=== PATIENT | female | born 1955 | race Caucasian/White ===

== ENCOUNTER → 2016-12-09 | Outpatient (CLI) | payer OTHER ==
[~2016-12-09] MED LIST: ALBINS INH; ALBU1AER9 INH; ALEN70TA4 PO; AMLO-110 PO; ASTNS; BCOMPLEX PO; CHOL1CAP67 PO; CLC100 PO; CZR50 PO; IMIP10TA2 PO; IPRLVL NEB; LABE1TAB28 PO; MRLP17 PO; PANT40TA PO; POTA10CA28 PO; PRMVC EXT; QVRINH40 INH; SNG10 PO
== END | disposition home or self-care (01) ==
LOC: C.PAPS 11:07
PROVIDERS: ATTEND Obstetrics & Gynecology
DX: Z01.419 Encounter for gynecological examination (general) (routine) without abnormal findings (principal)

== ENCOUNTER → 2016-12-18 | Outpatient (CLI) | payer OTHER ==
--- NOTE | 2016-12-18 12:29 | DIAGNOSTIC IMAGING REPORT ---
CHEST 2 VIEWS ROUTINE CLINICAL HISTORY: EXERTIONAL CHEST PAIN, SHORTNESS OF BREATH dyspnea COMPARISON STUDY: 07/20/2014 FINDINGS: The bones soft tissues and hemidiaphragms are normal. The cardiomediastinal silhouette is normal. The lungs are clear. The pulmonary vasculature is normal. IMPRESSION: Negative chest. Electronically signed by: Jadon Castelan M.D. 12/18/2016 12:27 PM Dictated Date/Time: 12/18/2016 12:27 PM
== END | disposition home or self-care (01) ==
LOC: C.RADBC 11:45
PROVIDERS: ATTEND Family Medicine
DX: R06.02 Shortness of breath (principal); R07.9 Chest pain, unspecified; I10 Essential (primary) hypertension; M85.80 Other specified disorders of bone density and structure, unspecified site; Z11.59 Encounter for screening for other viral diseases; Z13.0 Encounter for screening for diseases of the blood and blood-forming organs and certain disorders involving the immune mechanism

== ENCOUNTER → 2016-12-30 | Outpatient (CLI) | payer OTHER ==
--- NOTE | 2016-12-31 15:07 | MAMMOGRAPHY REPORT ---
BILATERAL DIGITAL SCREENING MAMMOGRAM TOMOSYNTHESIS WITH CAD: 12/30/2016 CLINICAL HISTORY: Routine screening. Patient has no complaints. TECHNIQUE: Breast tomosynthesis in addition to standard 2D mammography was performed. Current study was also evaluated with a Computer Aided Detection (CAD) system. COMPARISON: Comparison is made to exams dated: 07/11/2014 mammogram, 05/09/2013 mammogram, 05/05/2012 m ammogram, 04/30/2011 mammogram, 04/28/2010 mammogram, and 01/25/2009 mammogram - [facility] Radha Noel. BREAST COMPOSITION: There are scattered areas of fibroglandular density in both breasts. FINDINGS: There is a possible 6 mm mass in the upper outer anterior left breast, for which addition al targeted ultrasound and possible additional mammographic views are recommended. No other suspicious mass, architectural distortion or cluster of microcalcifications is seen bilater ally. IMPRESSION: ACR BI-RADS CATEGORY 0: INCOMPLETE EVALUATION: NEED ADDITIONAL IMAGING EVALUATION The possible 6 mm mass in the upper outer anterior left breast needs additional evaluation. The patient will be called to schedule an appointment. Approximately 10% of breast cancers are not detected with mammography. A negative mammographic repor t should not delay biopsy if a clinically suggestive mass is present. Lissy Rodriguez M.D. ay/:12/30/2016 21:40:13 Executive Administrative Asst: Almaz EVANGELISTA(Ct)(M), [facility] letter sent: Addl Imaging 0 BI-RADS Code: ACR BI-RADS Category 0: Incomplete Evaluation: Need Additional Imaging Evaluation
== END | disposition home or self-care (01) ==
LOC: C.MAMM 14:19
PROVIDERS: ATTEND Family Medicine
DX: Z12.31 Encounter for screening mammogram for malignant neoplasm of breast (principal)

== ENCOUNTER → 2017-01-08 | Outpatient (CLI) | payer OTHER ==
--- NOTE | 2017-01-08 15:41 | MAMMOGRAPHY REPORT ---
ULTRASOUND OF LEFT BREAST: 01/08/2017 CLINICAL HISTORY: Callback from screening mammogram for left breast mass. COMPARISON: Comparison is made to exams dated: 12/30/2016 mammogram - [facility], 07/21/2015 mammogram, 07/11/2014 mammogram, 05/09/2013 mammogram, 05/05/2012 mammogram, and 04/30/2011 ma mmogram - [facility]. TECHNIQUE: Real-time targeted ultrasound of the left breast was performed. FINDINGS: Real-time, high resolution targeted ultrasound was performed of the left 2 to 3:00 breast in the region of the 6 mm partially circumscribed and partially obscured mammographic mass seen on the recent tomosynthesis screening mammogram. In the left breast at 3:00 periareolar region, there is an oval circumscribed anechoic mass with a thin internal septation, measuring 6 x 3 x 4 mm. No i nternal vascularity is evident. This corresponds with the mammographic mass and is consistent with a benign cyst. IMPRESSION: ACR BI-RADS CATEGORY 2: BENIGN Benign 6 mm cyst in the left breast at 3:00 on ultrasound, which corresponds with the mammographic m ass. There is no sonographic evidence of malignancy. A 1 year screening mammogram is recommended. The patient was verbally notified of the results. Alycia Pérez M.D. ah/:01/08/2017 08:44:35 Reject Opener: Nena CORMIER)([place]ár[place]), [facility] letter sent: Normal 1/2 BI-RADS Code: ACR BI-RADS Category 2: Benign
== END | disposition home or self-care (01) ==
LOC: C.MAMM 08:26
PROVIDERS: ATTEND Family Medicine
DX: N63 Unspecified lump in breast (principal); N60.02 Solitary cyst of left breast

== ENCOUNTER → 2017-01-29 | Outpatient (CLI) | payer OTHER ==
--- NOTE | 2017-01-29 13:20 | DIAGNOSTIC IMAGING REPORT ---
ULTRASOUND LEFT LOWER EXTREMITY VENOUS CLINICAL HISTORY: Left lower extremity edema. COMPARISON STUDY: No priors. TECHNIQUE: Real-time, grayscale, and color Doppler sonography of the deep veins of the left lower extremity was performed from the inguinal crease to the calf. Compression and augmentation were utilized. FINDINGS: There is no sonographic evidence of deep venous thrombosis identified in the left lower extremity. The common femoral, superficial femoral, and popliteal veins are patent and normally compressible. The greater saphenous vein and the profunda femoris vein at the junction with the common femoral vein are clear. The visualized calf veins are patent. IMPRESSION: There is no sonographic evidence of deep venous thrombosis identified in the left lower extremity. Electronically signed by: Tyrone Guerra M.D. 01/29/2017 1:19 PM Dictated Date/Time: 01/29/2017 1:18 PM
== END | disposition home or self-care (01) ==
LOC: C.ULTRBC 12:51
PROVIDERS: ATTEND Family Medicine
DX: R60.9 Edema, unspecified (principal)